=== PATIENT | male | born 1985 | race Hispanic/Latino ===

== ENCOUNTER 2025-04-06 16:20 | Emergency (ER) | payer SELFPAY ==
[~2025-04-06] VITALS: Ht 180.3 cm; Wt 99.8 kg
--- NOTE | 2025-04-06 16:50 | ERN ---
ED Note History of Present Illness Stated Complaint: ELBOW INJURY Chief Complaint: Elbow Problem Time Seen by MD: 16:23 Time Seen by Midlevel: 16:24 Dictation: 39-year-old male who presents to the emergency department due to reported having pain to the right elbow that started approximately 1 week ago. He states that he was told that this could be a possible bursitis but is not confirmed. Currently, he denies having any fever or chills. The patient states that the pain is primarily worsened with palpation or certain particular movements. There is no report of any trauma. At this time, he rates his level of discomfort as a 7/10. Upon initial evaluation, the patient presents with a normal neurovascular examination. 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 Initial Vital Sign VS Vital Signs Date Time Temp Pulse Resp B/P (MAP) Pulse Ox O2 Delivery O2 Flow Rate FiO2 04/06/25 16:21 98.1 86 18 109/63 97 Room Air 04/06/25 19:51 0 21 Physical Exam Dictation General: awake, alert, NAD Head/Face: Normocephalic, atraumatic Eyes: PERRL, EOMI ENT: Oral mucosa moist Neck: Trachea midline, supple Cardiovascular: RRR, no edema Respiratory: Symmetrical, non-labored Abdomen: Soft, non-tender, non-distended, no guarding. Skin: Warm, dry, good turgor, no rash MS/Extremity: Painful range of motion and tenderness of the right elbow. Normal neurovascular examination. Neuro: COAx4, GCS 15, steady gait, Psych: Normal behavior, mood, and affect normal Results (Laboratory/Radiology) X-RAY Comment: Three-view x-ray of the right wrist with no cortical anomalies or deformities as interpreted by me. ED Course ED Course Orders Procedure Category Date Status Time Elbow Comp 3+Vws Rt RAD 04/06/25 Resulted 16:46 Dexamethasone 4mg/Ml PHA 04/06/25 Complete 1ml Vial (Dexametha 17:00 Ketorolac 60mg/2ml PHA 04/06/25 Complete (Toradol 60mg/2ml) 17:00 Current Medications Medications (Trade) Dose Ordered Sig/Ricardo Route PRN Reason Start Time Stop Time Status Last Admin Dose Admin Dexamethasone Sodium Phosphate (dexaMETHasone 4MG/ML 1ML VIAL) 8 mg ONCE IARTIC 04/06/25 17:00 04/06/25 20:27 DC 04/06/25 20:16 Ketorolac Tromethamine (toRADol 60MG/ 2ML) 60 mg ONCE IM 04/06/25 17:00 04/06/25 20:27 DC 04/06/25 20:16 Vital Signs Date Time Temp Pulse Resp B/P (MAP) Pulse Ox O2 Delivery O2 Flow Rate FiO2 04/06/25 19:51 98.4 78 19 133/69 98 Room Air* 0 21 04/06/25 16:21 98.1 86 18 109/63 97 Room Air Medical Decision Making MDM MDM: Differential diagnosis: Acute right elbow pain, olecranon bursitis, right elbow contusion. Rationale: Tests considered and ordered secondary to shared decision making include: Previous outside records reviewed: Old ER visits. Risk of complication and/or morbidity or mortality of patient management: None Medications-Per medication reconciliation Need for hospitalization: Patient does not meet criteria for hospitalization. Need for emergency major/minor surgery: No There are no social concerns with this patient. Prescription drug management Prescriptions will include symptomatic care Patient's prior external medical records from other ER visits were reviewed by me as indicated. Prior testing and results from previous visits were reviewed. Prior tests were taken into account with medical decision making and resource utilization, independent historian/historians were used to obtain complete medical history. I independently interpreted the test that were performed, results were reviewed by me and considered findings on radiology if ordered. Medical management and examination interpretation discussions were had by me with other qualified healthcare professionals as indicated for the patient's care. DX & DISP Disposition: Discharge Departure Impression: Primary Impression: Olecranon bursitis of right elbow Condition: Stable Time of Disposition: 18:27 ATTESTATION BY PHYSICIAN I PERFORMED THE SUBSTANTIVE PORTION OF THE VISIT. I HAVE REVIEWED AND PERSONALLY MADE AND APPROVED THE MANAGEMENT PLAN THAT IS DOCUMENTED IN THE NOTE BY MYSELF FOR THE A PP. WILD SHABAZZ Apr 06, 2025 16:50 TOBIAS GAN MD Apr 09, 2025 07:49
--- NOTE | 2025-04-06 18:30 | HMCIMG ---
EXAM: CR right elbow, 3 View. CLINICAL HISTORY: pain COMPARISON: None provided. FINDINGS: BONES: No acute fracture or aggressive appearing osseous lesion. Heterotopic ossification reflects a prior lateral elbow ligament injury. JOINTS: The joint spaces appear within normal limits. No dislocation. No radiographic evidence of a joint effusion. SOFT TISSUES: The soft tissues are unremarkable. IMPRESSION: 1. No acute osseous injury. 2. Heterotopic ossification, consistent with prior lateral elbow ligament injury. /[place]
--- NOTE | 2025-04-06 19:50 | NUR ---
PATIENT CARE ASSUMED AT THIS TIME.
[2025-04-06 19:51] VITALS: BP 133/69; PULSE 78; RESP 19; TEMP 98.4; O2SAT 98
== END 2025-04-06 20:26 | disposition home or self-care (01) ==
LOC: EDH 16:20
DX: M70.21 Olecranon bursitis, right elbow (principal)
CPT/HCPCS: 99284; 73080; 96372 ×2; J1100; J1885; 99283